=== PATIENT | male | born 1985 | race Caucasian/White ===

== ENCOUNTER 2019-07-26 18:39 | Emergency (ER) | payer SELFPAY ==
[2019-07-26 18:58] VITALS: BP 158/108
--- NOTE | 2019-07-26 19:13 | ED ---
HPI Chest Pain - HPI Summary HPI Summary: 34 yo WM obese, HTN not on medication, p/w left sided CP radiating to left arm associated with some SOB. Started with some left lower calf pain few days ago like a muscle spasm, with some associated weakness, Denies early fmhx of cardiac deaths, no previous IN, or strokes - History of Current Complaint Chief Complaint: UCChestPain Time Seen by Provider: 07/26/19 18:59 Hx Obtained From: Patient, Family/Rn Radiology Onset/Duration: Started Days Ago Timing: Intermittent Initial Severity: Moderate Current Severity: Moderate Pain Intensity: 3 Chest Pain Location: Left Anterior Chest Pain Radiates To:: Arm, Jaw Aggravating Factor(s): Nothing Alleviating Factor(s): Nothing Associated Signs and Symptoms: Positive: Shortness of Breath - Allergy/Home Medications Allergies/Adverse Reactions: Allergies Allergy/AdvReac Type Severity Reaction Status Date / Time No Known Allergies Allergy Verified 07/26/19 18:53 PMH/Surg Hx/FS Hx/Imm Hx Previously Healthy: No - Obese, elevated BP Endocrine/Hematology History: Denies: Hx Anticoagulant Therapy Infectious Disease History: No Infectious Disease History: Denies: Traveled Outside the [place] in Last 30 Days - Family History Known Family History: Positive: Non-Contributory - Social History Alcohol Use: None Substance Use Type: Reports: None Smoking Status (MU): Current Every Day Smoker Review of Systems Constitutional: Negative Eyes: Negative ENT: Negative Cardiovascular: Negative Positive: Chest Pain Positive: Shortness Of Breath Musculoskeletal: Negative Skin: Negative Neurological: Negative All Other Systems Reviewed And Are Negative: Yes Physical Exam - Summary Physical Exam Summary: Vital Signs Reviewed: Yes Eye Exam: Normal Eyes: Positive: Conjunctiva Clear ENT: Positive: Normal ENT inspection Neck: Positive: Supple Respiratory Exam: Normal Respiratory: Positive: Lungs clear Cardiovascular Exam: Normal Cardiovascular: Positive: RRR, S1,S2 Abdomen: NT/ND Musculoskeletal Exam: Normal Neurological Exam: Normal Psychological Exam: Normal Skin Exam: Normal Vital Signs On Initial Exam: Initial Vitals Temp Pulse Resp BP Pulse Ox 37.0 C 75 18 158/108 98 07/26/19 18:54 07/26/19 18:54 07/26/19 18:54 07/26/19 18:54 07/26/19 18:54 Diagnostics - Vital Signs Vital Signs Temp Pulse Resp BP Pulse Ox 07/26/19 18:54 37.0 C 75 18 158/108 98 - Laboratory Lab Statement: Any lab studies that have been ordered have been reviewed, and results considered in the medical decision making process. Chest Pain Course/Dx - Course Assessment/Plan: Obese, hypertensive WM with left sided CP radiating to right arm with recent h/o left calf pain, , no EKG abnormalities, transferred [place] [facility] [place]/o ACS vs PE and more compreheansive W/u. Spoke to nurses CATARINO and Adalgisa to inform of pt transfer - Chest Pain Differential Diagnosis/HQI/PQRI: Acute IN, ACS, Angina, Chest Wall, GI Disease, Lower Respiratory Infection, Pulmonary Embolism - Diagnoses Provider Diagnoses: Chest pain at rest Discharge ED - Sign-Out/Discharge Documenting (check all that apply): Patient Departure All imaging exams completed and their final reports reviewed: No Studies - Discharge Plan Condition: Stable Disposition: TRANS HIGHER LVL OF CARE FAC - Billing Disposition and Condition Condition: STABLE Disposition: Trans Higher Lvl of Care Fac
[2019-07-27] MEDS ORDERED: Aspirin 81 mg CHEW TAB* 81 MG TAB.CHEW PO SCH ×2 (09:00)
== END 2019-07-26 19:15 | disposition short-term general hospital (02) ==
LOC: UCEAST 18:39
DX: R07.9 Chest pain, unspecified (principal); R06.02 Shortness of breath; F17.210 Nicotine dependence, cigarettes, uncomplicated; E66.9 Obesity, unspecified; I10 Essential (primary) hypertension; M79.662 Pain in left lower leg; R53.1 Weakness
CPT/HCPCS: 93005; 99203; A9270-GY; G0463

== ENCOUNTER 2019-07-26 19:34 | Emergency (ER) | payer SELFPAY ==
[2019-07-26 20:26] LABS: ABS Basophils 0.1 10^3/ul (0-0.2); ABS Eosinophils 0.2 10^3/ul (0-0.6); ABS Lymphocytes 2.4 10^3/ul (1.0-4.8); ABS Monocytes 0.6 10^3/ul (0-0.8); ABS Neutrophils 6.8 10^3/ul (1.5-7.7); Eosinophil % 1.7 %; Hematocrit 45 % (42-52); Lymphocyte % 24.2 %; Mean Corpuscular HGB Conc 35 g/dL (31-36); Mean Corpuscular Hemoglobin 31 pg (27-31); Mean Corpuscular Volume 88 fL (80-94); Mean Platelet Volume 7.9 fL (7.4-10.4); Nucleated Red Blood Cells % 0.1; Platelet Count 253 10^3/uL (150-450); Red Blood Count 5.18 10^6 /uL (4.18-5.48); Red Cell Distribution Width 13 % (10-15); White Blood Count 10.1 10^3/uL (3.5-10.8)
[2019-07-26 20:43] LABS: Albumin 4.3 g/dL (3.2-5.2); Albumin/Globulin Ratio 1.8 (1-3); BUN/Creatinine Ratio 15.2 (8-20); Calcium 9.5 mg/dL (8.6-10.3); EGFR African American 104.1 (>60); Globulin 2.4 g/dL (2-4); Potassium 3.6 mmol/L (3.5-5.0); Total Protein 6.7 g/dL (6.4-8.9)
[2019-07-26 22:40] VITALS: BP 134/80
--- NOTE | 2019-07-27 00:02 | ED ---
HPI Chest Pain - HPI Summary HPI Summary: 34 year old male reports to the ED with the chief complaint of upper left chest pain that radiates down his left arm starting 2 days ago. He describes the pain as a 2/10 in severity that occurs every 15 minutes for 30 seconds each time. He reports a pain in his rico several days ago, and 2 days later he started having chest pain. No FHx of CAD. Aunt of DVT. He occasionally drinks, smokes tobacco daily. No recreational drugs. Medications reviewed. Allergies noted. - History of Current Complaint Chief Complaint: EDShoulderClavicleInj Time Seen by Provider: 07/26/19 19:38 Hx Obtained From: Patient Onset/Duration: Started Days Ago Timing: Intermittent, Lasting Seconds Initial Severity: Mild Current Severity: Mild Pain Intensity: 2 Pain Scale Used: 0-10 Numeric Chest Pain Location: Left Anterior Chest Pain Radiates: Yes Chest Pain Radiates To:: Arm Aggravating Factor(s): Nothing Alleviating Factor(s): Nothing Associated Signs and Symptoms: Positive: Chest Pain, Calf Pain/Swelling - Allergy/Home Medications Allergies/Adverse Reactions: Allergies Allergy/AdvReac Type Severity Reaction Status Date / Time No Known Allergies Allergy Verified 07/26/19 18:53 PMH/Surg Hx/FS Hx/Imm Hx Endocrine/Hematology History: Denies: Hx Anticoagulant Therapy Infectious Disease History: No Infectious Disease History: Denies: Traveled Outside the [place] in Last 30 Days - Family History Known Family History: Positive: Other - DVT Negative: Cardiac Disease - Social History Alcohol Use: None Substance Use Type: Reports: None Hx Tobacco Use: Yes Smoking Status (MU): Current Every Day Smoker Review of Systems Positive: Chest Pain Positive: Myalgia - arm, calf All Other Systems Reviewed And Are Negative: Yes Physical Exam - Summary Physical Exam Summary: Constitutional: Well-developed, Well-nourished, Alert. (-) Distressed Skin: Warm, Dry HENT: Normocephalic; Atraumatic Eyes: Conjunctiva normal Neck: Musculoskeletal ROM normal neck. (-) JVD, (-) Stridor, (-) Tracheal deviation Cardio: Rhythm regular, rate normal, Heart sounds normal; Intact distal pulses; Radial pulses are 2+ and symmetric. (-) Murmur Pulmonary/Chest wall: Effort normal. (-) Respiratory distress, (-) Wheezes, (-) Rales Abd: Soft, (-) tenderness, (-) Distension, (-) Guarding, (-) Rebound Musculoskeletal: (-) Edema Lymph: (-) Cervical adenopathy Neuro: Alert, Oriented x3 Psych: Mood and affect Normal Triage Information Reviewed: Yes Vital Signs On Initial Exam: Initial Vitals Temp Pulse Resp BP Pulse Ox 97.4 F 58 16 163/80 99 07/26/19 19:37 07/26/19 19:37 07/26/19 19:37 07/26/19 19:37 07/26/19 19:37 Vital Signs Reviewed: Yes Procedures - Sedation Patient Received Moderate/Deep Sedation with Procedure: No Diagnostics - Vital Signs Vital Signs Temp Pulse Resp BP Pulse Ox 07/26/19 21:52 98.1 F 78 16 134/80 98 07/26/19 21:17 13 125/82 07/26/19 21:00 18 07/26/19 20:47 10 138/86 07/26/19 20:17 14 154/94 07/26/19 20:00 11 07/26/19 19:47 18 136/82 07/26/19 19:45 17 07/26/19 19:37 97.4 F 58 16 163/80 99 - Laboratory Lab Results: Lab Results 07/26/19 07/26/19 07/26/19 Range/Units 20:21 20:21 20:21 WBC 10.1 (3.5-10.8) 10^3/uL RBC 5.18 (4.18-5.48) 10^6 /uL Hgb 16.0 (14.0-18.0) g/dL Hct 45 (42-52) % MCV 88 (80-94) fL MCH 31 (27-31) pg MCHC 35 (31-36) g/dL RDW 13 (10-15) % Plt Count 253 (150-450) 10^3/uL MPV 7.9 (7.4-10.4) fL Neut % (Auto) 67.3 % Lymph % (Auto) 24.2 % Warren % (Auto) 6.0 % Eos % (Auto) 1.7 % Baso % (Auto) 0.8 % Absolute Neuts (auto) 6.8 (1.5-7.7) 10^3/ul Absolute Lymphs (auto) 2.4 (1.0-4.8) 10^3/ul Absolute Monos (auto) 0.6 (0-0.8) 10^3/ul Absolute Eos (auto) 0.2 (0-0.6) 10^3/ul Absolute Basos (auto) 0.1 (0-0.2) 10^3/ul Absolute Nucleated RBC 0.0 10^3/ul Nucleated RBC % 0.1 D-Dimer, Quantitative < 200 (Less Than 230) ng/mL Sodium 138 (135-145) mmol/L Potassium 3.6 (3.5-5.0) mmol/L Chloride 106 (101-111) mmol/L Carbon Dioxide 25 (22-32) mmol/L Anion Gap 7 (2-11) mmol/L BUN 15 (6-24) mg/dL Creatinine 0.99 (0.67-1.17) mg/dL Est GFR ( Amer) 104.1 (>60) Est GFR (Non-Af Amer) 86.0 (>60) BUN/Creatinine Ratio 15.2 (8-20) Glucose 89 (70-100) mg/dL Calcium 9.5 (8.6-10.3) mg/dL Total Bilirubin 1.00 (0.2-1.0) mg/dL AST 24 (13-39) U/L ALT 42 (7-52) U/L Alkaline Phosphatase 36 (34-104) U/L Troponin I 0.00 (<0.04) ng/mL Total Protein 6.7 (6.4-8.9) g/dL Albumin 4.3 (3.2-5.2) g/dL Globulin 2.4 (2-4) g/dL Albumin/Globulin Ratio 1.8 (1-3) Result Diagrams: 07/26/19 20:21 07/26/19 20:21 Lab Statement: Any lab studies that have been ordered have been reviewed, and results considered in the medical decision making process. - Radiology CXR Radiology Interpretation Completed By: ED Physician Summary of Radiographic Findings: No acute processes. ED physician has interpreted this report. Pending official read. - EKG 1938 Cardiac Rate: Bradycardia - 55 bpm EKG Rhythm: Sinus Bradycardia Summary of EKG Findings: EKG at 1938 shows sinus bradycardia of 55 bpm. An ED physician has interpreted this EKG. Chest Pain Course/Dx - Course Course Of Treatment: Patient is here with left upper chest pain that comes every 15 minutes and lasts roughly 30 seconds. Patient's to have is pain off and on for multiple days. Patient is overall well-appearing upon arrival. Patient has no PE risk factors and has a low well [place] d-dimer was performed which was negative. Patient had a negative EKG for any abnormality. Patient had negative chest x-ray. Patient had negative troponin. Patient has no cardiac risk factors and this does not sound like ACS and history. Patient was given primary care follow-up and encouraged to take Motrin for his pain - Diagnoses Provider Diagnoses: Chest pain Discharge ED - Sign-Out/Discharge Documenting (check all that apply): Patient Departure - discharge - Discharge Plan Condition: Stable Disposition: HOME Patient Education Materials: Chest Pain (ED), Cervical Radiculopathy (ED) Referrals: [facility] [place] [facility] [Outside] Allan Torres MD [Primary Care Provider] - Additional Instructions: Please take Motrin 600 mg every 6 hours as needed for pain Please use heat on your neck Please come back to return if you have crushing chest pain, difficulty breathing , or any concerning symptoms Please call your primary care doctor to set up an appointment in the next 1-2 days - Billing Disposition and Condition Condition: STABLE Disposition: Home - Attestation Statements Document Initiated by Helen: Yes Documenting Scribe: Sachin Kaur Provider For Whom Helen is Documenting (Include Credential): Yobany Mendez. Scribe Attestation: Sachin Linn, scribed for Yobany Gomez on 07/27/19 at 1952. Scribe Documentation Reviewed: Yes Provider Attestation: The documentation as recorded by the Sachin vargas accurately reflects the service I personally performed and the decisions made by Yobany frias. Status of Scribe Document: Viewed
== END 2019-07-26 21:52 | disposition home or self-care (01) ==
LOC: ED 19:34
DX: R07.89 Other chest pain (principal); F17.210 Nicotine dependence, cigarettes, uncomplicated; R60.9 Edema, unspecified
CPT/HCPCS: 36415; 71046; 80053; 84484; 85025; 85379; 93005; 99282